=== PATIENT | female | born 1945 | race Caucasian/White ===

== ENCOUNTER 2016-08-20 11:45 | Emergency (ER) | payer MEDICARE, OTHER ==
--- NOTE | 2016-08-25 15:21 | ER ---
ADMIT: 08/20/2016 RM/LOC: [facility] MR#: [id number] [address] [place] [id number] ARCELIAANA JOSEPH [address] [place] [address] Emergency Room Report SEX: F AGE: 70 : 1945 DATE: 08/20/2016 HISTORY OF PRESENT ILLNESS: The patient with cough, back pain, and congestion, "I think I have a sinus infection." She says she saw Dr. Morse on 08/11, saw Dr. Haider on 08/13, and had her surgery on 08/17, and is here today on 08/20. PAST MEDICAL HISTORY: She has a past medical history of seizures, bladder prolapse that she got surgically fixed on 08/17/2016. MEDICATIONS: She takes: 1. Dilantin. 2. Phenobarbital. 3. Primidone. 4. Atenolol. 5. Vitamin D. ALLERGIES: TO KEFLEX, LEVAQUIN, PENICILLIN, SULFA, AND CODEINE. PHYSICAL EXAMINATION: VITAL SIGNS: Blood pressure is 150/79 with a pulse of 78, respirations 18, O2 sats 98, temperature is 98.9. HEENT: Has some pain on maxillary sinuses. Posterior pharynx is clear. CHEST: Patent. EXTREMITIES: Well perfused. ABDOMEN: Nontender. LABORATORY AND X-RAY DATA: WBC 5.5 with a hemoglobin of 10.5, hematocrit is 30.8, sodium 128. X-ray within normal limits. CLINICAL IMPRESSION: Upper respiratory infection with hyponatremia. DISPOSITION: Dr. Haider was contacted for consultation. She advises the ADMIT: 08/20/2016 RM/LOC: [facility] MR#: [id number] [address] [place] [id number] ANA FIELDS [address] [place] [address] Emergency Room Report SEX: F AGE: 70 : 1945 patient has gone through this in the past, has experienced hyponatremia, and had had to have her fluid intake decreased. So, she is recommending that she takes a liter and a half a day, make an appointment to see Dr. Morse on Tuesday. As I was discussing the findings and the orders for home followup, she decided that she wanted to get a shot antibiotic, but I am not able to place that shot anywhere nor had records of it, so I am going to defer that to her primary provider, but at this point, I offered her to give her a little bit of steroid shot to help with the sinuses and she refused it. The patient would rather see her primary provider on Tuesday. Encouraged to follow up with instructions we gave her and return if symptoms are really out of control for her where she has more body pain and is unable to follow up with the water intake limits. ELSI Martinez / Ramy Moise MD / veenal JOB #: [id number] CC: Ramy Moise MD, Attending Physician Siva Morse MD, Family Physician
== END 2016-08-20 16:34 | disposition home or self-care (01) ==
LOC: ER 11:45
DX: J06.9 Acute upper respiratory infection, unspecified (principal); E87.1 Hypo-osmolality and hyponatremia; I10 Essential (primary) hypertension; R56.9 Unspecified convulsions; Z88.0 Allergy status to penicillin; Z88.2 Allergy status to sulfonamides; Z88.6 Allergy status to analgesic agent; Z79.899 Other long term (current) drug therapy